=== PATIENT | male | born 1970 | race Caucasian/White ===

== ENCOUNTER 2018-01-08 21:11 | Emergency (ER) | payer SELFPAY ==
[~2018-01-08] VITALS: Ht 172.7 cm; Wt 109.0 kg
[2018-01-08 21:18] VITALS: BP 99/77
[2018-01-08] MEDS ORDERED: ONDANSETRON HCL 4MG/2ML VIAL IV STA (21:37)
[2018-01-08] MEDS ORDERED: SODIUM CHLORIDE 0.9% 1,000 ML IV ONE (21:37)
[2018-01-09 01:58] LABS: CLARITY URINE CLOUDY (CLEAR); COLOR URINE YELLOW (YELLOW); KETONES URINE TRACE (NEGATIVE); LEUKOCYTE ESTERASE URINE 1+ (NEGATIVE); NITRITE URINE NEGATIVE (NEGATIVE); OCCULT BLOOD URINE NEGATIVE (NEGATIVE); PROTEIN URINE 2+ (NEGATIVE); SPECIFIC GRAVITY URINE 1.026 (1.005-1.030)
[2018-01-09 02:08] LABS: *AMPHETAMINES SCREEN URINE PRESUMTIVE POSITIVE (NEGATIVE); *BARBITURATES SCREEN URINE NEGATIVE (NEGATIVE); *BENZODIAZEPINES SCREEN URINE NEGATIVE (NEGATIVE)
[2018-01-09 02:09] LABS: *COCAINE SCREEN URINE NEGATIVE (NEGATIVE); CANNABINOID URINE SCREEN NEGATIVE (NEGATIVE); METHADONE URINE SCREEN NEGATIVE (NEGATIVE); OPIATES URINE SCREEN NEGATIVE (NEGATIVE); PHENCYCLIDINE URINE SCREEN NEGATIVE (NEGATIVE)
== END 2018-01-09 00:30 | disposition left against medical advice (07) ==
LOC: ER 21:11
DX: R11.0 Nausea (principal); R19.7 Diarrhea, unspecified; F15.10 Other stimulant abuse, uncomplicated; F17.200 Nicotine dependence, unspecified, uncomplicated
CPT/HCPCS: 80305; 81003; 99284; J7030; Z7610